=== PATIENT | male | born 1985 | race Caucasian/White ===

== ENCOUNTER → 2019-11-28 | Outpatient (CLI) | payer BC | LOC: LAB 14:09 | DX: R05 Cough (principal); R50.9 Fever, unspecified; R06.02 Shortness of breath; R19.7 Diarrhea, unspecified; Z20.828 Contact with and (suspected) exposure to other viral communicable diseases; R53.83 Other fatigue; G47.33 Obstructive sleep apnea (adult) (pediatric) ==

== ENCOUNTER → 2020-11-11 | Outpatient (CLI) | payer BC | LOC: RAD 09:31 | DX: M25.521 Pain in right elbow (principal) ==

== ENCOUNTER → 2020-11-13 | Outpatient (CLI) | payer BC | LOC: RAD 20:00 | DX: M19.021 Primary osteoarthritis, right elbow (principal) ==

== ENCOUNTER → 2022-01-29 | Outpatient (CLI) | payer BC | LOC: RAD 14:08 | DX: M51.36 Other intervertebral disc degeneration, lumbar region (principal) ==

== ENCOUNTER → 2022-02-04 | Outpatient (CLI) | payer BC | LOC: RAD 17:12 | DX: M47.816 Spondylosis without myelopathy or radiculopathy, lumbar region (principal); M47.817 Spondylosis without myelopathy or radiculopathy, lumbosacral region; M51.26 Other intervertebral disc displacement, lumbar region; M48.061 Spinal stenosis, lumbar region without neurogenic claudication; M48.07 Spinal stenosis, lumbosacral region ==

== ENCOUNTER 2022-03-04 14:00 | Outpatient (RCR) | payer BC | END 2022-03-07 | LOC: PT 14:00 | DX: M54.50 Low back pain, unspecified (principal) ==

== ENCOUNTER 2022-03-09 07:51 | Outpatient (RCR) | payer BC | END 2022-04-07 | disposition home or self-care (01) | LOC: PT | DX: M54.50 Low back pain, unspecified (principal) ==

== ENCOUNTER → 2024-01-03 | Outpatient (CLI) | payer BC | LOC: LAB 16:15 | DX: E11.9 Type 2 diabetes mellitus without complications (principal) ==

== ENCOUNTER → 2024-03-16 | Outpatient (CLI) | payer BC | LOC: RAD 14:16 | DX: M47.816 Spondylosis without myelopathy or radiculopathy, lumbar region (principal) ==

== ENCOUNTER 2024-04-10 08:39 | Outpatient (RCR) | payer BC | END 2024-05-02 10:19 | disposition home or self-care (01) | LOC: PT 08:39 | DX: M54.50 Low back pain, unspecified (principal) ==